=== PATIENT | male | born 1955 | race Caucasian/White ===

== ENCOUNTER 2020-07-18 05:50 | Day surgery (SDC) | payer MEDICARE, BC ==
[2020-07-12 13:57] LABS: BASOPHILS # (AUTO) 0.1 X10'3 (0-0.2); BASOPHILS % (AUTO) 0.7 % (0-1); EOSINOPHILS # (AUTO) 0.1 X10'3 (0-0.9); EOSINOPHILS % (AUTO) 0.9 % (0-6); HEMATOCRIT 58.1 % (42.0-52.0); LYMPHOCYTES # (AUTO) 2.1 X10'3 (1.1-4.8); LYMPHOCYTES % (AUTO) 28.4 % (21-51); MEAN CORPUSCULAR HEMOGLOBIN 31.8 PG (27.0-31.0); MEAN CORPUSCULAR HGB CONC 33.2 g/dL (33.0-36.5); MEAN PLATELET VOLUME 8.1 FL (7.4-10.4); MONOCYTES # (AUTO) 0.8 X10'3 (0-0.9); MONOCYTES % (AUTO) 11.2 % (2-12); NEUTROPHILS # (AUTO) 4.3 X10'3 (1.8-7.7); NEUTROPHILS % (AUTO) 58.8 % (42-75); PLATELET COUNT 168 X10'3 (140-440); RED BLOOD COUNT 6.05 X10'6 (4.70-6.10); RED CELL DISTRIBUTION WIDTH 17.5 % (11.5-14.5); WHITE BLOOD COUNT 7.4 X10'3 (4.5-11.0)
[2020-07-12 14:22] LABS: ALBUMIN 3.2 G/DL (3.4-5.0); ANION GAP 7 (8-16); BLOOD UREA NITROGEN 29 MG/DL (7-18); BUN/CREATININE RATIO 21.8 (5.4-32.0); CALCIUM 8.9 MG/DL (8.5-10.1); CHLORIDE 103 MMOL/L (99-107); CREATININE 1.33 MG/DL (0.60-1.10); GLUCOSE 107 MG/DL (70-104); POTASSIUM 4.8 MMOL/L (3.5-5.1); SODIUM 138 MMOL/L (135-145); TOTAL CARBON DIOXIDE 27.7 MMOL/L (24-32); eGFR 54 ML/MIN
[2020-07-12 14:24] LABS: HEMOGLOBIN 19.3 g/dl (14.0-17.9)
[2020-07-12 14:35] LABS: PARTIAL THROMBOPLASTIN TIME 31 SECONDS (22-32)
[~2020-07-18] VITALS: Ht 172.7 cm; Wt 104.1 kg
[2020-07-18] VITALS (12 sets, daily range): BP systolic 88–129; BP diastolic 52–75
[2020-07-18] MEDS ORDERED: LORazepam 0.5 MG tablet PO PRN (06:25)
[2020-07-18] MEDS ORDERED: normal saline 1,000 ML IV SCH (06:25)
[2020-07-18] MEDS ORDERED: LIDOcaine/PRILOcaine 5gm cream TP ONE (06:25)
[2020-07-18] MEDS ORDERED: diphenhydrAMINE 25mg capsule PO PRN (06:25)
[2020-07-18] MEDS ORDERED: BECL7.3A7 (06:41)
[2020-07-18] MEDS ORDERED: MV-M1TAB19 PO (06:41)
[2020-07-18] MEDS ORDERED: DIFL500T PO (06:41)
[2020-07-18] MEDS ORDERED: GABA300C PO (06:41)
[2020-07-18] MEDS ORDERED: LOSA50TA3 PO (06:41)
[2020-07-18] MEDS ORDERED: LANS15CA18 PO (06:41)
[2020-07-18] MEDS ORDERED: LACT1CAP65 PO (06:41)
[2020-07-18] MEDS ORDERED: METO100T7 PO (06:41)
[2020-07-18] MEDS ORDERED: TEST1.25 TD (06:41)
[2020-07-18] MEDS ORDERED: APIX5TAB3 PO (06:41)
[2020-07-18] MEDS ORDERED: ATOR80TA PO (06:41)
[2020-07-18] MEDS ORDERED: SERT25TA PO (06:41)
[2020-07-18] MEDS ORDERED: POTA20TA19 PO (06:41)
[2020-07-18] MEDS ORDERED: MULT-1085 PO (06:41)
[2020-07-18] MEDS ORDERED: FURO40TA4 PO (06:41)
[2020-07-18] MEDS ORDERED: TIOT18CA3 (06:41)
[2020-07-18] MEDS ORDERED: ICOS1CAP PO (06:41)
[2020-07-18] MEDS ORDERED: fentaNYL/PF 50MCG/1 ML 2ML syringe ONE (09:21)
[2020-07-18] MEDS ORDERED: midazolam 2 mg/2 ml injection ONE ×2 (09:21→09:49)
[2020-07-18] MEDS ORDERED: LIDOcaine 1% (10mg/ml)w/preservative injection 20ml MDV ONE (09:21)
[2020-07-18] MEDS ORDERED: iohexol 350MG/ML 100ml bottle IV ONE (09:21)
[2020-07-18] MEDS ORDERED: iohexol 350 MG/ML 50ML vial IV ONE (09:25)
[2020-07-18] MEDS ORDERED: verapamil 2.5 mg/ml inj IV ONE (09:35)
[2020-07-18] MEDS ORDERED: heparin 1,000unit/ml 10ml vial 10 ML ONE (09:35)
[2020-07-18] MEDS ORDERED: nitroGLYCERIN-Tridil 50MG/D5W 250 ML IV ONE (09:35)
[2020-07-18] MEDS ORDERED: HYDROcodone/acetaminophen 5mg/325mg tablet PO PRN (10:30)
[2020-07-18] MEDS ORDERED: proCHLORperazine 10 MG/2 ml inj IV PRN (10:30)
[2020-07-18] MEDS ORDERED: HYDROcodone/acetaminophen 10/325mg tab PO PRN (10:30)
[2020-07-18] MEDS ORDERED: acetaminophen 325mg tablet PO PRN (10:30)
[2020-07-18] MEDS ORDERED: ondansetron/PF 4mg/2ml inj IV PRN (10:30)
[2020-07-18] MEDS ORDERED: OXAZEpam 15mg capsule PO PRN (10:30)
== END 2020-07-18 14:04 | disposition home or self-care (01) ==
LOC: SSTAY O 05:50
PROVIDERS: ATTEND Student in an Organized Health Care Education/Training Program
DX: R06.02 Shortness of breath (principal); I25.10 Atherosclerotic heart disease of native coronary artery without angina pectoris; I48.91 Unspecified atrial fibrillation; I50.9 Heart failure, unspecified; K21.9 Gastro-esophageal reflux disease without esophagitis; E78.5 Hyperlipidemia, unspecified; Z87.891 Personal history of nicotine dependence; Z79.899 Other long term (current) drug therapy; Z79.01 Long term (current) use of anticoagulants
CPT/HCPCS: 36415; 80048; 85025; 85610; 85730; 93005; 93458; 99152; C1769; C1894; J1644; J2001; J2250; J3010; J7030; Q0163; Q9967; A4620; A5120; J3490

== ENCOUNTER 2023-10-07 10:13 | Day surgery (SDC) | payer MEDICARE, BC ==
[2023-10-03 13:56] LABS: BASOPHILS % (AUTO) 0.5 % (0-1); EOSINOPHILS # (AUTO) 0.1 X10'3 (0-0.9); EOSINOPHILS % (AUTO) 1.5 % (0-6); HEMATOCRIT 45.4 % (42.0-52.0); HEMOGLOBIN 15.3 g/dl (14.0-17.9); LYMPHOCYTES # (AUTO) 2.2 X10'3 (1.1-4.8); LYMPHOCYTES % (AUTO) 23.1 % (21-51); MEAN CORPUSCULAR HEMOGLOBIN 32.8 PG (27.0-31.0); MEAN CORPUSCULAR HGB CONC 33.6 g/dL (33.0-36.5); MEAN CORPUSCULAR VOLUME 97.5 FL (78-98); MEAN PLATELET VOLUME 7.1 FL (7.4-10.4); MONOCYTES # (AUTO) 1.2 X10'3 (0-0.9); MONOCYTES % (AUTO) 11.9 % (2-12); NEUTROPHILS # (AUTO) 6.1 X10'3 (1.8-7.7); PLATELET COUNT 230 X10'3 (140-440); RED BLOOD COUNT 4.66 X10'6 (4.70-6.10); RED CELL DISTRIBUTION WIDTH 15.8 % (11.5-14.5); WHITE BLOOD COUNT 9.7 X10'3 (4.5-11.0)
[2023-10-03 14:06] LABS: ALBUMIN 3.1 G/DL (3.4-5.0); ANION GAP 5 (8-16); BLOOD UREA NITROGEN 42 MG/DL (7-18); BUN/CREATININE RATIO 28.6 (10.0-20.0); CALCIUM 9.6 MG/DL (8.5-10.1); CHLORIDE 106 MMOL/L (99-107); CHOL/HDL RATIO 3.8 (0.00-4.99); CHOLESTEROL 149 MG/DL (0-200); CREATININE 1.47 MG/DL (0.60-1.10); GLUCOSE 110 MG/DL (70-104); HDL CHOLESTEROL 39 MG/DL (35-60); LDL CHOLESTEROL 80 MG/DL (50-100); POTASSIUM 5.2 MMOL/L (3.5-5.1); SODIUM 137 MMOL/L (135-145); TOTAL CARBON DIOXIDE 26.1 MMOL/L (24-32); TRIGLYCERIDES 159 MG/DL (20-135); eGFR 47 ML/MIN
[2023-10-07] VITALS (12 sets, daily range): BP systolic 119–130; BP diastolic 48–58; PULSE 59–67; RESP 14–16; TEMP 97.4; O2SAT 94–97
[~2023-10-07] VITALS: Ht 172.7 cm; Wt 110.6 kg
[~2023-10-07 10:13] MED LIST: APIX5TAB3 PO; ATOR80TA PO; BECL7.3A7; DIFL500T PO; FURO40TA4 PO; GABA300C PO; ICOS1CAP PO; LACT1CAP65 PO; LANS15CA18 PO; LOSA-416 PO; METO100T7 PO; MULT-1085 PO; MV-M1TAB19 PO; POTA-208 PO; SERT25TA PO; TEST1.25 TD; TIOT18CA3
[2023-10-07] MEDS ORDERED: LORazepam 0.5 MG tablet PO PRN (10:30)
[2023-10-07] MEDS ORDERED: diphenhydrAMINE 25mg capsule PO PRN (10:30)
[2023-10-07] MEDS ORDERED: normal saline 1,000 ML IV SCH (10:30)
[2023-10-07] MEDS ORDERED: EMPA10TA PO (10:44)
[2023-10-07] MEDS ORDERED: SPIR25TA5 PO (10:44)
[2023-10-07] MEDS ORDERED: SACU1TAB7 PO (10:44)
[2023-10-07] MEDS ORDERED: CELE100C99 PO (10:44)
[2023-10-07] MEDS ORDERED: LANS30CA56 PO (10:44)
[2023-10-07] MEDS ORDERED: SERT-433 PO (10:44)
[2023-10-07 11:04] LABS: PROTHROMBIN TIME 11.1 SECONDS (9.0-12.0)
[2023-10-07] MEDS ORDERED: LIDOcaine 1% (10mg/ml) 2ml vial ONE (11:50)
[2023-10-07] MEDS ORDERED: fentaNYL/PF 50MCG/1 ML 2ML syringe ONE (11:50)
[2023-10-07] MEDS ORDERED: verapamil 2.5 mg/ml inj IV ONE (11:50)
[2023-10-07] MEDS ORDERED: iohexol 350MG/ML 100ml bottle IV ONE (11:50)
[2023-10-07] MEDS ORDERED: midazolam 1 mg/ML 2ml injection ONE (11:50)
[2023-10-07] MEDS ORDERED: heparin 1,000unit/ml 10ml vial 10 ML ONE (11:50)
[2023-10-07] MEDS ORDERED: nitroGLYCERIN 500mcg/5mL D5W 5 ML IV ONE (11:51)
[2023-10-07] MEDS ORDERED: proCHLORperazine 10 MG/2 ml inj IV PRN (13:15)
[2023-10-07] MEDS ORDERED: OXAZEpam 15mg capsule PO PRN (13:15)
[2023-10-07] MEDS ORDERED: nitroGLYCERIN 0.4mg SUBLingual tab SL PRN (13:15)
[2023-10-07] MEDS ORDERED: ondansetron/PF 4mg/2ml inj IV PRN (13:15)
== END 2023-10-07 16:11 | disposition home or self-care (01) ==
LOC: SSTAY O 10:13
PROVIDERS: ATTEND Student in an Organized Health Care Education/Training Program
DX: R94.39 Abnormal result of other cardiovascular function study (principal); I25.82 Chronic total occlusion of coronary artery; I11.0 Hypertensive heart disease with heart failure; I50.9 Heart failure, unspecified; I48.91 Unspecified atrial fibrillation; E78.5 Hyperlipidemia, unspecified; I42.9 Cardiomyopathy, unspecified; I73.9 Peripheral vascular disease, unspecified; K21.9 Gastro-esophageal reflux disease without esophagitis; Z79.899 Other long term (current) drug therapy; Z79.01 Long term (current) use of anticoagulants
CPT/HCPCS: 36415; 80048; 80061; 85025; 85610; 93005; 93454; 99152; J1644; J2250; J3010; J3490; J7030; Q0163; Q9967; A6258; A6402; C1894